=== PATIENT | male | born 2000 | race Caucasian/White ===

== ENCOUNTER 2021-08-11 07:05 | Outpatient (REF) | payer OTHER, MEDICAID, SELFPAY ==
[2021-08-11 10:35] LABS: MANUAL DIFF FLAG NO
[2021-08-11 10:43] LABS: Basophils Percent Auto 0.3 % (0-2); Eosinophils Absolute Auto 0.1 X10*3/uL (0.0-0.4); Eosinophils Percent Auto 1.3 % (0-4); Hematocrit 42.6 % (42.0-52.0); Hemoglobin 14.2 g/dl (14.0-18.0); Imm Gran Abs Auto 0.01 X10*3/uL (0.00-0.03); Imm Gran Pct Auto 0.3 % (0.0-0.4); Lymphocytes Absolute Auto 1.5 X10*3/uL (1.2-4.9); Lymphocytes Percent Auto 37.9 % (20-40); Mean Corpuscular HGB Conc 33.3 g/dl (31.0-36.0); Mean Corpuscular Hemoglobin 29.3 pg (27.0-33.0); Mean Platelet Volume 10.1 fL (9.4-12.4); Monocytes Absolute Auto 0.3 X10*3/uL (0.1-1.2); Neutrophils Absolute Auto 2.1 x10*3/uL (2.0-8.3); Neutrophils Percent Auto 53.2 % (45-73); Platelet Count 213 X10*3/uL (160-400); Red Blood Count 4.84 X10*6/uL (4.60-5.80); Red Cell Distribution Width 11.7 % (11.0-16.0)
[2021-08-11 11:21] LABS: Alanine Aminotransferase 30 U/L (0-40); Albumin Level 4.4 g/dL (3.5-5.0); Alkaline Phosphatase 81 U/L (39-117); Anion Gap 11 (12-20); Aspartate Amino Transferase 18 U/L (5-37); Bilirubin Total 0.8 mg/dL (0.0-1.0); Blood Urea Nitrogen 15 mg/dL (9-16); Calcium 9.9 mg/dL (8.4-10.2); Carbon Dioxide 29 mmol/L (22-29); Chloride 107 mmol/L (96-108); Cholesterol 158 mg/dL; Estimated Glomerular Filt Rate > 60; Glucose Fasting 87 mg/dL (60-99); HDL Cholesterol 44 mg/dL; LDL Cholesterol Calculated 100 mg/dl; Potassium 4.4 mmol/L (3.3-5.1); Sodium 143 mmol/L (135-145); Triglycerides 70 mg/dL
[2021-08-11 11:49] LABS: HBS Num1 0.95 mIU/mL (0-7.99); HBc Num1 0.06 S/CO (0.00-0.79); HIV AB/AG Nonreactive (Nonreactive); HIV Num 1 0.19 S/CO (0.00-0.99); Hepatitis B Core Antibody Nonreactive (Nonreactive); Hepatitis B Surface Antigen Negative (Negative); ~HepC Num1 0.09 S/CO (0.00-0.79); ~Hepatitis B Surface Antibody NONREACTIVE (Nonreactive); ~Hepatitis C Antibody Nonreactive (Nonreactive)
[2021-08-12 08:22] LABS: Syphilis Screen Nonreactive (Nonreactive)
== END 2021-08-11 07:06 | disposition home or self-care (01) ==
LOC: HO.WFDLDS 07:05
PROVIDERS: Visit Provider Family Medicine
DX: Z00.00 Encounter for general adult medical examination without abnormal findings (principal); Z11.4 Encounter for screening for human immunodeficiency virus [HIV]; Z11.3 Encounter for screening for infections with a predominantly sexual mode of transmission
CPT/HCPCS: 36415; 80053; 80061; 84443; 85025; 86704; 86706; 86780; 86803; 87340; 87389

== ENCOUNTER 2022-10-16 | Outpatient (REF) | payer BC, MEDICAID, SELFPAY ==
[2022-10-17 11:58] LABS: Appearance Urine Clear; Color Urine Yellow; Glucose Urine UA Negative (Negative); Leukocyte Esterase Urine Negative (Negative); Nitrite Urine Negative (Negative); PH 5.5 (5.0-9.0); UMIC TRIGGER UA YES; Urine Blood Negative (Negative); Urine Ketones Negative (Negative); Urine Protein 30 (1+) mg/dL (Neg-Trace)
[2022-10-17 12:00] LABS: Bacteria Urine None Seen (None Seen); Hyaline Casts Urine 0-2 /LPF (0-2); RBC Urine 0-2 /HPF (0-2); Squamous Epithelial Cell Urine 0-2 /HPF (0-2); WBC Urine 0-5 /HPF (0-5)
[2022-10-17 12:25] LABS: Amphetamine Screen Urine POSITIVE (Not Detect); Barbiturates, Urine Not Detected (Not Detect); Benzodiazepines Screen Urine Not Detected (Not Detect); Cannabinoid Screen Urine Not Detected (Not Detect); Cocaine Screen Urine Not Detected (Not Detect); Fentanyl, urine Not Detected (Not Detect); Opiate Screen Urine Not Detected (Not Detect); Phencyclidine Screen Urine Not Detected (Not Detect)
[2022-10-17 13:22] LABS: Creatinine Urine 58.98 mg/dL
== END 2022-10-16 00:01 | disposition home or self-care (01) ==
LOC: HO.LNP
PROVIDERS: Visit Provider Family Medicine
DX: F90.9 Attention-deficit hyperactivity disorder, unspecified type (principal); I10 Essential (primary) hypertension
CPT/HCPCS: 80307; 81001; 82043

== ENCOUNTER 2024-07-17 15:42 | Outpatient (AMB) | payer BC, MEDICAID, SELFPAY ==
--- NOTE | 2024-07-17 15:52 | MHC.PC.OV ---
Vital Signs 07/17/24 15:56 Height 5 ft 11 in Weight 148 lb 4 oz BMI 20.7 BP 90/60 Blood Pressure Location Lt brachial Position Sitting Respiration 16 Pulse 89 Pulse Source Pulse Oximeter Temp 98.2 F Temp Source Oral Pulse Oximetry (%) 97 Oxygen Delivery Method Room Air Intake Visit Reasons: PE Intake Note: PE Allergies No Known Allergies Allergy (Verified 07/17/24 15:53) Tobacco use date assessed: 07/17/24 Dental Screening Dental Screen Date: 07/17/24 Did you have a dental visit in the last 12 months?: Yes Did you have a dental problem in the last 6 months where you did not have access to dental care?: No Was dental information given to patient?: Patient has dentist HPI PE HPI Details 24 y/o male presents for a CPE with f/u labs and health maintenance. No recent labs to review. PFSH Surgical History No pertinent past surgical history Family History Father High blood pressure High cholesterol Mother No problems noted. Social History Housing: House Alcohol intake: never Patient Tobacco Use Status: Never used Tobacco e-Cigarette/Vaping Use: Never Used Second Hand Smoke Exposure: Yes service: No Current occupational status: student Current occupational exposures/hazards: No Cognitive needs: No Hearing needs: No Vision needs: No Questionnaire PHQ-9 Over the last 2 weeks, how often have you been bothered by any of the following problems? 1. Little interest or pleasure in doing things: more than half the days 2. Feeling down, depressed, or hopeless: not at all 3. Trouble falling or staying asleep, or sleeping too much: more than half the days 4. Feeling tired or having little energy: not at all 5. Poor appetite or overeating: not at all 6. Feeling bad about yourself - or that you are a failure or have let yourself or your family down: not at all 7. Trouble concentrating on things, such as reading the newspaper or watching television: more than half the days 8. Moving or speaking so slowly that other people could have noticed. Or the opposite - being so fidgety or restless that you have been moving around a lot more than usual: not at all 9. Thoughts that you would be better off or of hurting yourself in some way: not at all Total score: 6 Source: Developed by Drs. Eliezer Benavides, Fatuma Ballard, Jose Luis Olea and colleagues, with an educational paul from [employer]. Thrive Questionnaire Date Thrive assessed: 07/17/24 I am a: Patient What is your living situation today?: I have a steady place to live Within the past 12 months, did the food you bought not last and you didn't have the money to get more?: Never true Within the past 12 months, did you worry whether your food would run out before you got money to buy more?: Sometimes True Do you have trouble paying for medicines?: No Do you have trouble getting transportation to medical appointments?: Yes Do you have trouble paying your heating and electricity bill?: No Do you have trouble taking care of your child, family member or friend?: No Do you have trouble with day-to-day activities such as bathing, preparing meals, shopping, managing finances, etc.?: I choose not to answer this question Are you currently unemployed and looking for a job?: Yes Are you interested in more education?: Yes Please select the resources that you would like help with: None Currently or been in a relationship where the following occur: No concerns reported THRIVE Score: 2 AUDIT C Alcohol Use Questionnaire (AUDIT-C) 1. How often do you have a drink containing alcohol?: Never Total Score: 0 TRINA-7 AMB Questionnaire TRINA-7 Date TRINA - 7 assessed: 07/17/24 Feeling nervous, anxious, or on edge: 2 = More than half the days Not being able to stop or control worryin = More than half the days Worrying too much about different things: 0 = Not at all Trouble relaxin = Several days Being so restless that it is hard to sit still: 0 = Not at all Becoming easily annoyed or irritable: 2 = More than half the days Feeling afraid as if something awful might happen: 0 = Not at all Total TRINA-7 score (0-4 normal; 5-9 mild; 10-14 moderate; 15-21 severe): 7 Source: Developed by Drs. Eliezer Benavides, Fatuma Ballard, Jose Luis Olea and colleagues, with an educational paul from [employer] TRINA-7 Assessment Billing TRINA-7 Assessment Tool: TRINA-7 Assessment 21817 Review of Systems Const Denies chills, Denies fatigue, Denies fever(s), Denies headache(s) and Denies weakness Eyes Denies change in vision ENT Denies dizziness, Denies headache(s), Denies hearing loss, Denies nasal congestion, Denies sinus pain, Denies sinus pressure and Denies sore throat Card Denies chest pain, Denies lightheadedness, Denies dyspnea and Denies other (palpitations) Resp Denies cough, Denies dyspnea and Denies wheezing GI Denies abdominal pain, Denies melena, Denies hematochezia, Denies change in bowel habits, Denies dyspepsia and Denies nausea Denies hematuria and Denies dysuria Musc Denies abnormal gait, Denies myalgias, Denies arthralgias, Denies numbness and Denies tingling Skin/Breast Denies rash, Denies unusual bruising and Denies wounds Neuro Denies abnormal gait, Denies dizziness, Denies headache(s), Denies memory loss, Denies numbness, Denies Sensory deficit (Neuro), Denies tingling and Denies weakness Psych Denies anxiety, Denies depression and Denies memory loss Endo Denies cold intolerance, Denies fatigue, Denies heat intolerance, Denies polydipsia and Denies polyuria Marcial/Lymph Denies easy bleeding and Denies easy bruising Aller/Immun Denies wheezing Physical exam (Primary Care) Tobacco/Smoking Status: Tobacco use Status Tobacco use date assessed 07/17/24 07/17/24 15:58 Patient Tobacco Use Status Never used Tobacco 07/17/24 15:58 e-Cigarette/Vaping Use Never Used 07/17/24 15:58 PHQ-9: PHQ-9 Score PHQ-9: Total score 6 07/17/24 15:58 Thrive Assessment: Date of Thrive Assessment Date Thrive assessed 07/17/24 07/17/24 15:58 Currently or been in a relationship where the following occur: No concerns reported Const General: no acute distress, well developed, alert and awake Nutritional Appearance: well nourished Orientation/consciousness: patient oriented x3 [facility] Head: Yes normocephalic and Yes atraumatic Ears: hearing grossly normal bilaterally and TM's normal bilaterally General nose exam: Normal external nose present and Normal nares present Mouth: Normal oral and palatal mucosa present and moist mucous membranes Teeth and gingiva: dentition normal Throat: Yes posterior oropharynx normal Eyes General: appearance normal, both eyes and all related structures Pupils: Equal, round and reactive pupils present and Pupil accommodation reflex normal EOM: EOMs intact bilaterally Neck Neck: Yes normal visual inspection, Yes no lymphadenopathy and Yes trachea midline Thyroid: Thyroid normal Carotids: no bruits Lymphatic: no lymphadenopathy noted Chest Chest palpation & inspection: normal inspection of the chest Resp Effort & Inspection: normal respiratory effort Auscultation: clear to auscultation bilaterally Cardio Rate: regular rate Rhythm: regular rhythm Heart sounds: S1 normal heart sound present, S2 normal heart sound present, no gallops, no murmurs and no rubs Bruits: no abdominal aortic bruits and no carotid bruits GI Palpation (GI): No Abdominal aortic bruit present, Soft to palpation, nontender, No hepatosplenomegaly present and No Rebound tenderness present Auscultation: normal bowel sounds General: Yes no CVA tenderness Back/Spine/Pelvis Back: no CVA tenderness Cervical Spine: cervical ROM normal and No Cervical spine tenderness Thoracic/Lumbar Spine: thoraco-lumbar ROM normal, No pain with thoraco-lumbar ROM, No thoracic spinal tenderness and No lumbar spinal tenderness Skin Lesions: no lesions Rashes: no rashes Trauma: no lacerations or abrasions Wounds: no wounds Nails: normal Neuro General: patient oriented x3 Cranial nerves: Yes Equal, round and reactive pupils present Cognition (Neuro): normal cognition Gait exam (Neuro): Normal gait present Motor exam (neuro): 5/5 motor strength present throughout Sensory Exam: No Sensory deficit (Neuro) Deep tendon reflexes (DTR's): Right patellar reflex intensity grade: 2+ and Left patellar reflex intensity grade: 2+ Extrem General: Yes normal to inspection and No edema Psych Appearance: grossly normal Affect: normal affect Attitude: cooperative Thought process: Normal thought process present Coding Level of Care Code Est Pt Level 3 (84631) Est Pt Prev Care 18-39y(42645) Diagnoses Adult general medical exam Z00.00 Autism F84.0 ADHD (attention deficit hyperactivity disorder) F90.9 Anxiety with depression F41.8 Additional Codes TRINA-7 Assessment Billing - TRINA-7 Assessment Tool: TRINA-7 Assessment 49184 ([id number]) Assessment & Plan Assessment & Plan (1) Adult general medical exam: Code(s): Z00.00 - Encounter for general adult medical examination without abnormal findings Category: Medical Plan: 24-year-old?male?presents?for?complete?physical?exam Encouraged?diet?with?active?lifestyle?and?plenty?of?exercise (2) Autism: Code(s): F84.0 - Autistic disorder Category: Medical Plan: Peculiar?affect?likely?secondary?to?autism?ADHD?as?well?as?anxiety?and?depression. Patient?has?mom?requests?referral?to?neuropsychiatry Referral?is?made (3) ADHD (attention deficit hyperactivity disorder): Code(s): F90.9 - Attention-deficit hyperactivity disorder, unspecified type Category: Medical Plan: Patient?is?now?followed?by?a?provider?and?is?methylphenidate Follow-up?with?your?psych?med?provider?as?recommended (4) Anxiety with depression: Code(s): F41.8 - Other specified anxiety disorders Category: Medical Plan: Stable Continue?current?medications Now?has?referral to?neuropsychiatry Orders: Orders Comprehensive [place]. Panel Fast Today Z00.00 - Encounter for general adult medical examination without abnormal findings Lipid Panel Today Z00.00 - Encounter for general adult medical examination without abnormal findings Microalbumin, Random (w Creat) Today I10 - Essential (primary) hypertension UA and rflx microscopic Today Z00.00 - Encounter for general adult medical examination without abnormal findings TSH reflex Free T4 Today Z00.00 - Encounter for general adult medical examination without abnormal findings Referrals Neuropsychiatry Referral F41.8 - Other specified anxiety disorders, F84.0 - Autistic disorder, F90.9 - Attention-deficit hyperactivity disorder, unspecified type Medications: Discontinued dextroamphetamine-amphetamine 15 mg ER (Adderall XR) [facility] verified. Partial refill upon request. Discontinued Reason: Patient no longer taking 15 mg PO QAM 28 days 28 caps 0RF
[2024-07-17 15:56] VITALS: BP 90/60; PULSE 89; RESP 16; TEMP 36.8; O2SAT 97; BMI 20.7
== END 2024-07-17 16:10 | disposition home or self-care (01) ==
PROVIDERS: PCP Family Medicine; Visit Provider Family Medicine
DX: Z00.00 Encounter for general adult medical examination without abnormal findings (principal); F84.0 Autistic disorder; F90.9 Attention-deficit hyperactivity disorder, unspecified type; F41.8 Other specified anxiety disorders

== ENCOUNTER → 2024-07-17 15:42 | Outpatient (BNVA) | payer BC, MEDICAID, SELFPAY | PROVIDERS: PCP Family Medicine; Visit Provider Family Medicine | DX: Z00.00 Encounter for general adult medical examination without abnormal findings (principal); F84.0 Autistic disorder; F90.9 Attention-deficit hyperactivity disorder, unspecified type; F41.8 Other specified anxiety disorders | CPT/HCPCS: 96127 ==

== ENCOUNTER 2024-08-05 11:36 | Outpatient (REF) | payer BC, MEDICAID, SELFPAY ==
[2024-08-05 14:05] LABS: Appearance Urine Clear; Color Urine Yellow; Glucose Urine UA Negative (Negative); Leukocyte Esterase Urine Negative (Negative); Nitrite Urine Negative (Negative); UMIC TRIGGER UA YES; Urine Blood Negative (Negative); Urine Ketones Negative (Negative); Urine Protein 30 (1+) mg/dL (Neg-Trace)
[2024-08-05 14:07] LABS: Bacteria Urine None Seen (None Seen); Hyaline Casts Urine 0-2 /LPF (0-2); RBC Urine 0-2 /HPF (0-2); Squamous Epithelial Cell Urine 0-2 /HPF (0-2); WBC Urine 0-5 /HPF (0-5)
[2024-08-05 14:37] LABS: Creatinine Urine 247.51 mg/dL
[2024-08-05 14:53] LABS: Alanine Aminotransferase 42 U/L (0-40); Albumin Level 4.4 g/dL (3.5-5.0); Alkaline Phosphatase 63 U/L (39-117); Anion Gap 9 (12-20); Aspartate Amino Transferase 26 U/L (5-37); Bilirubin Total 0.7 mg/dL (0.0-1.0); Blood Urea Nitrogen 12 mg/dL (9-16); Calcium 8.9 mg/dL (8.4-10.2); Carbon Dioxide 29 mmol/L (22-29); Chloride 108 mmol/L (96-108); Cholesterol 136 mg/dL (<200); Estimated Glomerular Filt Rate > 60; Glucose Fasting 80 mg/dL (60-99); HDL Cholesterol 54 mg/dL (>40); LDL Cholesterol Calculated 72 mg/dL (<100); Potassium 3.5 mmol/L (3.3-5.1); Sodium 142 mmol/L (135-145); Total Protein 6.4 g/dL (6.5-8.0); Triglycerides 54 mg/dL (<150)
[2024-08-05 14:55] LABS: TSH reflex Free T4 0.52 uIU/mL (0.32-4.0)
== END 2024-08-05 11:37 | disposition home or self-care (01) ==
LOC: HO.WFDLDS 11:36
PROVIDERS: Visit Provider Family Medicine
DX: Z00.00 Encounter for general adult medical examination without abnormal findings (principal); I10 Essential (primary) hypertension
CPT/HCPCS: 36415; 80053; 80061; 81001; 81003; 82043; 82570; 84443

== ENCOUNTER 2024-08-22 14:12 | Outpatient (AMB) | payer OTHER, SELFPAY ==
--- NOTE | 2024-08-22 14:08 | MHC.PC.OV ---
Intake Visit Reasons: f/u CPE-labs via telemedicine Allergies No Known Allergies Allergy (Verified 07/17/24 15:53) Medication List - Last Reconciled 08/22/24 by Nathan Leija MD albuterol sulfate 90 mcg/actuation 2 puffs inhalation Q4-6H 30 days bupropion HCl XL 150 mg PO QAM 90 days fexofenadine (Anika Allergy) 180 mg PO Q24H 30 days fluticasone propionate 50 mcg/actuation sprays intranasal trazodone 36 mg PO DAILY Tobacco use date assessed: 07/17/24 Dental Screening Dental Screen Date: 07/17/24 HPI f/u CPE-labs via telemedicine HPI Details 24 y/o male presents to f/u CPE-labs via telemedicine. Labs drawn 08/05/24. Reviewed labs with pt. Elevated ALT of 42. Triglycerides 54. TC 136. LDL 72. HDL 54. PFSH Surgical History No pertinent past surgical history Family History Father High blood pressure High cholesterol Mother No problems noted. Social History Housing: House Alcohol intake: never Patient Tobacco Use Status: Never used Tobacco e-Cigarette/Vaping Use: Never Used Second Hand Smoke Exposure: Yes service: No Current occupational status: student Current occupational exposures/hazards: No Cognitive needs: No Hearing needs: No Vision needs: No Questionnaire Thrive Questionnaire Date Thrive assessed: 07/17/24 I am a: Patient What is your living situation today?: I have a steady place to live Within the past 12 months, did the food you bought not last and you didn't have the money to get more?: Never true Within the past 12 months, did you worry whether your food would run out before you got money to buy more?: Sometimes True Do you have trouble paying for medicines?: No Do you have trouble getting transportation to medical appointments?: Yes Do you have trouble paying your heating and electricity bill?: No Do you have trouble taking care of your child, family member or friend?: No Do you have trouble with day-to-day activities such as bathing, preparing meals, shopping, managing finances, etc.?: I choose not to answer this question Are you currently unemployed and looking for a job?: Yes Are you interested in more education?: Yes Please select the resources that you would like help with: None Currently or been in a relationship where the following occur: No concerns reported THRIVE Score: 2 AUDIT C Alcohol Use Questionnaire (AUDIT-C) 3. How often do you have six or more drinks on one occasion?: Never Total Score: 0 TRINA-7 AMB Questionnaire TRINA-7 Date TRINA - 7 assessed: 07/17/24 Source: Developed by Drs. Eliezer Benavides, Fatuma Ballard, Jose Luis Olea and colleagues, with an educational paul from [employer]. Review of Systems Const Denies chills, Denies fatigue, Denies fever(s), Denies headache(s) and Denies weakness ENT Denies dizziness and Denies headache(s) Card Denies dyspnea Resp Denies cough, Denies dyspnea, Denies wheezing and Denies other (shortness of breath) Musc Denies numbness and Denies tingling Neuro Denies dizziness, Denies headache(s), Denies numbness, Denies tingling and Denies weakness Psych Denies anxiety and Denies depression Endo Denies fatigue Aller/Immun Denies wheezing Physical exam (Primary Care) Tobacco/Smoking Status: Tobacco use Status Tobacco use date assessed 07/17/24 08/22/24 14:09 Patient Tobacco Use Status Never used Tobacco 08/22/24 14:09 e-Cigarette/Vaping Use Never Used 08/22/24 14:09 Thrive Assessment: Date of Thrive Assessment Date Thrive assessed 07/17/24 08/22/24 14:09 Currently or been in a relationship where the following occur: No concerns reported Telehealth Telehealth Telehealth Platform: Telephone Location of provider rendering services: practice address Location of patient: address on file Patient Identification confirmed using: Name, : Yes Telehealth method: voice only Patient verbally consented to treatment: Yes Patient verbally consented to billing insurance company: Yes Patient informed of any privacy concerns related to visit: Yes Minutes spent on Phone/Video with Pt.: 8 Coding Level of Care Code Tele Est Pt Level 2 (28146) Diagnoses Elevated ALT measurement R74.01 Assessment & Plan Assessment & Plan (1) Elevated ALT measurement: Code(s): R74.01 - Elevation of levels of liver transaminase levels Category: Medical Plan: Mildly?elevated?ALT Will?have?patient?hydrate?well?and?repeat?this Orders: Orders Comprehensive Met. Panel Today R74.01 - Elevation of levels of liver transaminase levels
--- OUTSIDE RECORDS SUMMARY | 2024-08-22 14:14 | XMS_ITS | Encounter Summary ---
Author Organization [facility] Address [address] [place] [address] Phone Care Team Providers Care Environmental Projects Advisor Name Role Phone Randall Rizvi MD Primary Care Provider + [phone] Reason for Visit * Reason Comments Med Refill Encounter Details Date Type Department Care Team (Late st Contact Info) Description 09/21/2022 [facility]ill [facility] [address] [address] Greta Sanders MD [address] [place] [id number] Environmental allergies Social History Tobacco Use Types Packs/Day Years Used Date Smoking Tobacco: Never Smokeless Tobacco: Never Alcohol Use Standard Drinks/Week Comments No 0 (1 standard drink = 0.6 oz pur e alcohol) Hunger/Food Answer Date Recorded In the last 12 months, did y ou or your family ever eat less than you felt you should because there wasn't enough money for food? No 10/28/2020 Stable Housing Answer Date Recorded Are you worried that in the next 2 months you may not have stable housing? No 10/28/2020 Transportation Concerns Answer Date Rec orded In the last 12 months, have you or your family ever had to go without healthcare because you didn't have a way to get there? No 10/28/2020 Hazards in Home Answer Date Recorded Think about the place you li ve. Do you have problems with any of the following? Pests (mice or roaches), mold, no/not working smoke detectors, water leaks, no window guards. No 2020 Financing Utilities Answer Date Recorde d In the last 12 months, has t he electric, gas, oil, or water company threatened to shut off your services in your home? No 10/28/2020 Safety at Home Answer Date Recorded Are you or your family worried about feeling saf e in your home? No 10/28/2020 Outside Support Answer Date Recorded Do you feel that you need mo re support from other people or programs to help you care for yourself or your family? Yes 10/28/2020 Understanding Health Concerns Answer Da te Recorded Do you need help understandi ng your or your child's healthcare needs (diagnosis, medications, plan, etc.)? No 10/28/2020 Financing Health Concerns Answer Date R ecorded In the last 12 months, was t here a time when your child needed to see a doctor or get medications or supplies but could not because of cost? No 10/28/2020 Missing School or Work Answer Date Otf rded Did you or your child miss s chool or work because of a health problem that could have been avoided? No 10/28/2020 Sex and Gender Information Value Date Recorded Sex Assigned at Not on file Legal Sex Male 6:20 PM EDT Gender Identity Male 09/23/2020 3:46 PM EST Sexual Orientation Not on file documented as of this encounter Miscellaneous Notes * Telephone Encounter - Saud Worrell CMA - 09/21/2022 11:35 AM EST Please refuse Pt is inactive Aged out of practice . Thanks documented in this encounter Plan of Treatment Not on file documented as of this encounter Visit Diagnoses Diagnosis Environmental allergies Other allergy, other than to medicinal agents documented in this encounter Care Teams Environmental Projects Advisor Relationship Specialty Start Date End Date Randall Rizvi MD 7 [facility] [place] [address] PCP - General Pediatrics 07/06/19 documented as of this encounter
--- OUTSIDE RECORDS SUMMARY | 2024-08-22 14:14 | XMS_ITS | Encounter Summary ---
Author Organization [facility] Address [address] [place] [address] Phone Care Team Providers Care Systems Mechanic Name Role Phone Randall Rizvi MD Primary Care Provider [phone] Encounter Details Date Type Department Care Team (Late st Contact Info) Description 12/09/2017 Conversion [facility]counter [facility] [id number] [place] [address] Airam Engel MD [address] [place] [address] Social History Tobacco Use Types Packs/Day Years Used Date Smoking Tobacco: Never Assessed Sex and Gender Information Value Date Recorded Sex Assigned at Not on file Legal Sex Male 6:20 PM EDT Gender Identity Male 09/23/2020 3:46 PM EST Sexual Orientation Not on file documented as of this encounter Plan of Treatment Not on file documented as of this encounter Visit Diagnoses Not on filedocumented in this encounter Care Teams Systems Mechanic Relationship Specialty Start Date End Date Randall Rizvi MD [address] [place] [address] PCP - General Pediatrics 07/06/19 documented as of this encounter
--- OUTSIDE RECORDS SUMMARY | 2024-08-22 14:14 | XMS_ITS | Encounter Summary ---
Author Organization [facility] Address [address] [place] [address] Phone Care Team Providers Care Weaving Inspector Name Role Phone Randall Rizvi MD Primary Care Provider + [phone] Reason for Visit * Reason Comments Med Refill Encounter Details Date Type Department Care Team (Late st Contact Info) Description 06/08/2022 [facility]ill [facility] [address] [address] Greta Sanders MD [address] [place] [phone] Environmental allergies Social History Tobacco Use Types [...] Telephone Encounter - Saud Worrell CMA - 06/08/2022 10:33 AM EST Pt is 22 yrs old Aged out of practice Inactive Please refuse documented in this encounter Plan of Treatment Not on file documented as of this encounter Visit Diagnoses Diagnosis Environmental allergies Other allergy, other than to medicinal agents documented in this encounter Care Teams Weaving Inspector Relationship Specialty Start Date End Date Randall Rizvi MD 7 [facility] [place] [address] PCP - General Pediatrics 07/06/19 documented as of this encounter
--- OUTSIDE RECORDS SUMMARY | 2024-08-22 14:14 | XMS_ITS | Encounter Summary ---
Author Organization [facility] Address [address] [place] [address] Phone Care Team Providers Care Lining Machine Tender Name Role Phone Randall Rizvi MD Primary Care Provider + [phone] Reason for Visit * Reason Comments Med Refill Encounter Details Date Type Department Care Team (Late st Contact Info) Description 11/16/2021 [facility]ill [facility] [address] [address] Randall Rizvi MD [address] [place] [phone] Environmental allergies Social History Tobacco Use Types [...] agents documented in this encounter Care Teams Lining Machine Tender Relationship Specialty Start Date End Date Randall Rizvi MD 7 [facility] [place] [address] PCP - General Pediatrics 07/06/19 documented as of this encounter
--- OUTSIDE RECORDS SUMMARY | 2024-08-22 14:14 | XMS_ITS | Encounter Summary ---
Author Organization [facility] Address [address] [place] [address] Phone Care Team Providers Care Flitch Hanger Name Role Phone Randall Rizvi MD Primary Care Provider [phone] Reason for Visit * Reason Comments Med Refill Encounter Details Date Type Department Care Team (Late st Contact Info) Description 01/19/2018 [facility]ill [facility] [address] [address] Airam Engel MD [address] [place] [address] Social History Tobacco Use Types Packs/Day Years Used Date Smoking Tobacco: Never Assessed Sex and Gender Information Value Date Recorded Sex Assigned at Not on file Legal Sex Male 6:20 PM EDT Gender Identity Male 09/23/2020 3:46 PM EST Sexual Orientation Not on file documented as of this encounter Miscellaneous Notes * Telephone Encounter - Mallory Obrien - 01/19/2018 1:37 PM EDT Pt no showed to appts, need to sched. documented in this encounter Plan of Treatment Not on file documented as of this encounter Visit Diagnoses Not on filedocumented in this encounter Care Teams Flitch Hanger Relationship Specialty Start Date End Date Randall Rizvi MD [address] [place] [address] PCP - General Pediatrics 07/06/19 documented as of this encounter
--- OUTSIDE RECORDS SUMMARY | 2024-08-22 14:14 | XMS_ITS | Clinical Summary ---
Author Organization [facility] Address [address] [place] [phone] Phone Care Team Providers Care Steam Distribution Supervisor Name Role Phone Randall Rizvi MD Primary Care Provider Allergies No known active allergies Medications guanFACINE HCl ER 1 MG tablet sustained-release 24 hourIndications:A ttention deficit hyperactivity disorder (ADHD), predominantly inattentive type To give 2 tables for one week and then 1 tablet per week and then stop. 21 tablet 9 Active Additional Information Patient not taking.Reported on 03/10/2021 chlorhexidine 0.12 % solution SWISH WITH 1 CAPFUL FOR 2 MINUTES THEN SPIT 3 TIMES A DAY (AFTER MEALS) 1 Active clindamycin 300 MG capsule TAKE 1 CAPSULE BY MOUTH EVERY 6 HOURS UNTIL FINISHED 1 Active guanFACINE HCl ER 3 MG tablet sustained-release 24 hour 0 Active ibuprofen 800 MG tablet Take 800 mg by mouth every 8 (eight) hours as needed. for pain 1 Active methylPREDNISolon e 4 MG tablet therapy pack See admin instructions. 1 Active oxyCODONE-acetami nophen 5-325 MG per tablet Take 1 tablet by mouth every 4 (four) hours as needed. for pain 1 Active fluticasone (Flonase) 50 MCG/ACT nasal sprayIndications: Environmental allergies Administer 1 spray into each nostril daily. 1 Units 5 1 Active albuterol HFA 108 (90 Base) MCG/ACT inhalerIndication s:Environmental allergies INHALE 2 PUFFS EVERY 4 HOURS NEEDED (COUGH). 1 Units 1 Active methylphenidate (Concerta) 36 MG CR tabletIndications :Attention deficit hyperactivity disorder (ADHD), predominantly inattentive type Take 1 tablet (36 mg total) by mouth every morning. 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 07/10 Assessment & Plan (08/13/2019 11:49 AM EST): Plans to see oral surgeon on in a few weeks. Mild intermittent asthma without complication Hypopigmentation 04/27/2015 Assessment & Plan (05/28/2018 2:44 PM EST): To derm for check; as dad has vitigo Wears glasses 02/20/2013 Autism 09/21/2003 Overview (05/27/2018): Dr Robert, MRI neg, Chroms and Fragile X normal, initially on gluten and casein free diet. Educ. testing shows strengths in nonverbal and spatial activities and weakness in verbal skills 11/28 Assessment & Plan (07/08/2019 11:02 AM EST): Continue to work with speech and services. Assessment & Plan (05/28/2018 2:44 PM EST): Cont services at school Speech delay 05/23/2003 Overview (07/07/2020): receptive speech delay, normal hearing 04/29; IEP for speech, pragmatics, academic support 01/04, [employer] program 04/08 graphic Design; seen by speech again 06/2020 Assessment & Plan (05/28/2018 2:44 PM EST): Cont services. ADD (attention deficit disorder) Overview (05/27/2018): inattentiveness 08/31 educational testing with strengths in nonverbal and spatial abilities and weakness in verbal skills 11/28 ADHD - stimulant tx 12/29 - Neuropsych testing by Dr Raul lora 08/2009 - intolerance of stimulants, MCPAP consult, Jessica Maki prescribes 01/01, back to [facility] for prescribing 02/01 Assessment & Plan (10/28/2020 3:26 PM EDT): Doing well on concerta 36 mg; no change in dose at this time. Assessment & Plan (09/23/2020 4:19 PM EST): Will increase to 36 mg per day of Concerta in attempt to improve his concentration. Has WCC in one month, so will plan to see him at that time. Family can call sooner if needed. Assessment & Plan (08/13/2019 12:14 PM EST): Plan to continue his dosing at 27 mg of Concerta as he is doing well on this dose; plan for recheck in 6 mos; sooner as needed. Assessment & Plan (07/08/2019 11:00 AM EST): Will plan to change to Concerta 27 mg to see if that helps with his sedation issues; the guanfacine may be making him more tired. Will wean the guanfacine by 1mg per week until d/c'd Assessment & Plan (05/28/2018 2:41 PM EST): Still on guanfacine. Can try off meds on weekends and see how does and if no difference the come off meds or change to something else. Resolved Problems Problem Noted Date Diagnosed Date Resolved Date Influenza vaccine refused 07/08/2019 Assessment & Plan (07/08/2019 10:21 AM EST): Discussed reasons for influenza vaccination to include prevention of this potential serious infection. BMI (body mass index), pedia tric, less than 5th percentile for age 0601/14/2016 07/08/2019 Immunizations Name Administration Dates Next Due COVID-19 Pfizer, monovalent, 12+ years 1 DTaP 05/25/2005, 2,2000,08/17,2000 HPV Vaccine 9 Valent 12/03/2018,07/30/2018,05/28 Hep A, ped/adol 05/28/2018,02/02/2017 Hep B, ped/adol 01/10/2001,2000,2000 Hib (PRP-T) 07/26/2001, 1,2000,06/29 IPV 05/25/2005, 1,2000,06/29 Influenza 05/03/2004,05/07/2003 Influenza, injectable, quadr ivalent, preservative free 07/08/2019,05/28/2018,04/23/2008 MMR 05/03/2004,04/23/2001 Meningococcal Conj (Menactra) MCV4P 02/02/2017,0 01/12/2012 Pneumococcal Conjugate 07/26/2001,2000,2000,06/29 Tdap 01/12/2012 Varicella 06/28/2007,04/23/2001 Family History Medical History Relation Name Comments No Known Problems Brother Hyperlipidemia Father Hypertension Father Thyroid disease Father Pancreatic cancer Maternal Grandfather Irregular heart beat Maternal Grandmother Pancreatic cancer Maternal Grandmother Thyroid disease Maternal Grandmother Irregular heart beat Mother Indigo Heart disease (Premature) Paternal Grandfather Hyperlipidemia Paternal Grandfather Lymphoma Paternal Grandfather Thyroid disease Paternal Grandmother Relation Name Status Comments Brother Alive Father Alive Maternal Grandfather Alive Maternal Grandmother Mother Indigo Alive Paternal Grandfather Paternal Grandmother Alive Social History Tobacco Use Types Packs/Day Years [...] PM EST Sexual Orientation Not on file Last Filed Vital Signs Vital Sign Reading Time Taken Comments Blood Pressure 112/70 10/28/2020 3:00 PM EDT Pulse 104 07/29/2016 12:00 AM EST Temperature 36.7 ??C (98.1 ??F) 03/10/2021 10:16 AM E DT Respiratory Rate - - Oxygen Saturation 100% 07/29/2016 12:00 AM EST Inhaled Oxygen Concentration - - Weight 63.5 kg (140 lb) 03/10/2021 10:16 AM EDT Height 179.1 cm (5' 10.5 ) 10/28/2020 3:00 PM ED T Body Mass Index 19.8 10/28/2020 3:00 PM EDT Plan of Treatment Health Maintenance Due Date Last Done Comments DTaP,Tdap,and Td Vaccines (7 - Td or Tdap) 01/11/2022 01/12/2012, 05/25/2005, 07/26/2001, Additional history exists Influenza Vaccines (#1) 2024 07/08/20 19, 05/28/2018, 04/23/2008, Additional history exists COVID-19 Vaccine ( season) 2024 08/19/2021, 02/04/2021, 01/13/2021 Hepatitis B Vaccines Completed 01/10/2001, 2000, 2000 HIB Vaccines Completed 07/26/2001, 11/2000, 2000, Additional history exists Pneumococcal Vaccine Completed 07/26/2001, 2000, 2000, Additional history exists MMR Vaccines Completed 05/03/2004, 04/23/2001 IPV Vaccines Completed 05/25/2005, 12/22, 2000, Additional history exists Varicella Vaccines Completed 06/28/2007, 04/23/2001 Meningococcal Vaccine Completed 02/02/2017, 012 Hepatitis A Vaccines Completed 05/28/2018, 02/03/20 17 HPV Vaccines Completed 12/03/2018, 02/2019, 05/28/2018 Men B Vaccine Aged Out No longer elig ible based on patient's age to complete this topic Insurance [facility] PCC [facility] NON PCC Care Teams Steam Distribution Supervisor Relationship Specialty Start Date End Date Randall Rizvi MD [address] [place] [id number] PCP - General Pediatrics 07/06/19
== END 2024-08-22 17:05 | disposition home or self-care (01) ==
LOC: HO.HMCFM 14:12
PROVIDERS: PCP Family Medicine; Visit Provider Family Medicine
DX: R74.01 Elevation of levels of liver transaminase levels (principal)

== ENCOUNTER 2024-10-14 10:47 | Outpatient (REF) | payer OTHER, SELFPAY ==
[2024-10-14 14:20] LABS: Appearance Urine Clear; Color Urine Yellow; Glucose Urine UA Negative (Negative); Leukocyte Esterase Urine Negative (Negative); Nitrite Urine Negative (Negative); PH 5.5 (5.0-9.0); Urine Blood Negative (Negative); Urine Ketones Negative (Negative); Urine Protein Negative (Neg-Trace)
[2024-10-14 14:45] LABS: Alanine Aminotransferase 35 U/L (0-40); Albumin Level 4.5 g/dL (3.5-5.0); Alkaline Phosphatase 70 U/L (39-117); Anion Gap 9 (12-20); Aspartate Amino Transferase 24 U/L (5-37); Bilirubin Total 0.6 mg/dL (0.0-1.0); Blood Urea Nitrogen 13 mg/dL (9-16); Calcium 9.3 mg/dL (8.4-10.2); Carbon Dioxide 29 mmol/L (22-29); Chloride 107 mmol/L (96-108); Estimated Glomerular Filt Rate > 60; Glucose Random 82 mg/dL (60-115); Sodium 141 mmol/L (135-145); Total Protein 6.7 g/dL (6.5-8.0)
== END 2024-10-14 10:48 | disposition home or self-care (01) ==
LOC: HO.WFDLDS 10:47
PROVIDERS: Visit Provider Family Medicine
DX: Z00.00 Encounter for general adult medical examination without abnormal findings (principal); R74.01 Elevation of levels of liver transaminase levels
CPT/HCPCS: 36415; 80053; 81003

== ENCOUNTER 2024-11-12 15:42 | Outpatient (AMB) | payer OTHER, SELFPAY ==
--- NOTE | 2024-11-12 15:29 | A.OFFPC_ITS ---
Intake Visit Reasons: f/u liver enzymes Intake Note: patient is scheduled to review labs [employer]ed [employer] Panels Deburrer Required: No Allergies No Known Allergies Allergy (Verified 11/12/24 15:29) Tobacco use date assessed: 07/17/24 Dental Screening Dental Screen Date: 07/17/24 HPI f/u liver enzymes HPI Details 24 y/o male presents to f/u labs via tel emedicine. Labs drawn 10/14/24. Reviewed labs with pt. AST 24. ALT improved from 42 to 35. PFSH Surgical History No pertinent past surgical history Family History Father High blood pressure High cholesterol Mother No problems noted. Social History Housing: House Alcohol intake: never Patient Tobacco Use Status: Never used Tobacco e-Cigarette/Vaping Use: Never Used Second Hand Smoke Exposure: Yes service: No Current occupational status: student Current occupational exposures/hazards: No Cognitive needs: No Hearing needs: No Vision needs: No Questionnaire Thrive Questionnaire Date Thrive assessed: 07/17/24 TRINA-7 AMB Questionnaire TRINA-7 Date TRINA - 7 assessed: 07/17/24 Source: Developed by Drs. Eliezer Benavides, Fatuma Ballard, Jose Luis Olea and colleagues, with an educational paul from [facility]. Review of Systems Const Denies chills, Denies fatigue, Denies fever(s), Denies headache(s) and Denies weakness ENT Denies dizziness and Denies headache(s) Card Denies dyspnea Resp Denies cough, Denies dyspnea, Denies wheezing and Denies other (shortness of breath) Musc Denies numbness and Denies tingling Neuro Denies dizziness, Denies headache(s), Denies numbness, Denies tingling and Denies weakness Psych Denies anxiety and Denies depression Endo Denies fatigue Aller/Immun Denies wheezing Physical exam (Primary Care) Tobacco/Smoking Status: Tobacco use Status Tobacco use date assessed 07/17/24 11/12/24 15:31 Patient Tobacco Use Status Never used Tobacco 11/12/24 15:31 e-Cigarette/Vaping Use Never Used 04/23/25 15:31 Thrive Assessment: Date of Thrive Assessment Date Thrive assessed 07/17/24 11/12/24 15:31 Telehealth Telehealth Telehealth Platform: Telephone Location of provider rendering services: practice address Location of patient: address on file Patient Identification confirmed using: Name, : Yes Telehealth method: voice only Patient verbally consented to treatment: Yes Patient verbally consented to billing insurance company: Yes Patient informed of any privacy concerns related to visit: Yes Minutes spent on Phone/Video with Pt.: 7 Coding Level of Care Code Tele Est Pt Level 2 (62019) Diagnoses Elevated ALT measurement R74.01 Assessment & Plan Assessment & Plan (1) Elevated ALT measurement: Code(s): R74.01 - Elevation of levels of liver transaminase levels Category: Medical Plan: Liver?enzymes?now?within?normal?range Continue?good?hydration Will?monitor?periodically?with?he?is?routine?annual?labs. Orders: Orders Comprehensive [place]. Panel Fast Today Z00.00 - Encounter for general adult medical examination without abnormal findings Lipid Panel Today Z00.00 - Encounter for general adult medical examination without abnormal findings TSH reflex Free T4 Today Z00.00 - Encounter for general adult medical exam ination without abnormal findings UA CC w/rflx Micro + Cult Today Z00.00 - Encounter for general adult medical examination without abnormal findings Complete Blood Count Auto Diff Today Z00.00 - Encounter for general adult medical examination without abnormal findings Microalbumin, Random (w Creat) Today I10 - Essential (primary) hypertension
--- OUTSIDE RECORDS SUMMARY | 2024-11-12 18:18 | XMS_ITS | Encounter Summary ---
Author Organization [facility] Address [address] [place] [phone] Phone Care Team Providers Care Shoe Lay Out Planner Name Role Phone Randall Rizvi MD Primary Care Provider [phone] Encounter Details Date Type Department Care Team (Late st Contact Info) Description 12/09/2017 Conversion [facility]counter [facility] [id number] [place] [address] Airam Engel MD [address] [place] [address] Social History Tobacco Use Types Packs/Day Years [...] on filedocumented in this encounter Care Teams Shoe Lay Out Planner Relationship Specialty Start Date End Date Randall Rizvi MD [address] [place] [address] PCP - General Pediatrics 07/06/19 08/31/24 documented as of this encounter
--- OUTSIDE RECORDS SUMMARY | 2024-11-12 18:18 | XMS_ITS | Clinical Summary ---
Author Organization [facility] Address [address] [place] [address] Phone Care Team Providers Care Rail Car Loader Name Role Phone Unavailable Primary Care Provider Unavailabl e Allergies No known active allergies Medications guanFACINE [...] - intolerance of stimulants, MCPAP consult, Jessica Shanthi prescribes 01/01, back to [facility] for prescribing 02/01 Assessment & Plan (10/28/2020 [...] 5th percentile for age 0601/14/2016 07/08/2019 Immunizations Immunization Administration Dates Next Due COVID-19 Pfizer, monovalent, [...] patient's age to complete this topic Insurance [facility] NON PCC [facility] NON PCC
--- OUTSIDE RECORDS SUMMARY | 2024-11-12 18:18 | XMS_ITS | Encounter Summary ---
Author Organization [facility] Address [address] [place] [phone] Phone Care Team Providers Care Director Of Anesthesia Services Name Role Phone Randall Rizvi MD Primary Care Provider [phone] Reason for Visit * Reason Comments Med Refill Encounter Details Date Type Department Care Team (Late st Contact Info) Description 01/19/2018 [facility]ill [facility] [address] [address] Airam Engel MD [address] [place] [address] Social History Tobacco Use Types Packs/Day Years [...] on filedocumented in this encounter Care Teams Director Of Anesthesia Services Relationship Specialty Start Date End Date Randall Rizvi MD [address] [place] [address] PCP - General Pediatrics 07/06/19 08/31/24 documented as of this encounter
--- OUTSIDE RECORDS SUMMARY | 2024-11-12 18:18 | XMS_ITS | Encounter Summary ---
Author Organization [facility] Address [address] [place] [address] Phone Care Team Providers Care Heat Pump Installer Name Role Phone Randall Rizvi MD Primary Care Provider + [phone] Reason for Visit * Reason Comments Med Refill Encounter Details Date Type Department Care Team (Late st Contact Info) Description 06/08/2022 [facility]ill [facility] [address] [address] Greta Sanders MD [address] [place] [phone] Environmental allergies Social History Tobacco Use Types [...] agents documented in this encounter Care Teams Heat Pump Installer Relationship Specialty Start Date End Date Randall Rizvi MD 7 [facility] [place] [address] PCP - General Pediatrics 07/06/19 08/31/24 documented as of this encounter
--- OUTSIDE RECORDS SUMMARY | 2024-11-12 18:18 | XMS_ITS | Encounter Summary ---
Author Organization [facility] Address [address] [place] [address] Phone Care Team Providers Care Tripe Washer Name Role Phone Randall Rizvi MD Primary Care Provider + [phone] Reason for Visit * Reason Comments Med Refill Encounter Details Date Type Department Care Team (Late st Contact Info) Description 09/21/2022 [facility]ill [facility] [address] [address] Greta Sanders MD [address] [place] [phone] Environmental allergies Social History Tobacco Use Types [...] agents documented in this encounter Care Teams Tripe Washer Relationship Specialty Start Date End Date Randall Rizvi MD 7 [facility] [place] [address] PCP - General Pediatrics 07/06/19 08/31/24 documented as of this encounter
--- OUTSIDE RECORDS SUMMARY | 2024-11-12 18:18 | XMS_ITS | Encounter Summary ---
Author Organization [facility] Address [address] [place] [phone] Phone Care Team Providers Care Healthcare Economics Consultant Name Role Phone Randall Rizvi MD Primary Care Provider + [phone] Reason for Visit * Reason Comments Med Refill Encounter Details Date Type Department Care Team (Late st Contact Info) Description 11/16/2021 [facility]ill [facility] [address] [address] Randall Rizvi MD [address] [place] [phone] Environmental allergies Social History Tobacco Use Types [...] agents documented in this encounter Care Teams Healthcare Economics Consultant Relationship Specialty Start Date End Date Randall Rizvi MD 7 [facility] [place] [address] PCP - General Pediatrics 07/06/19 08/31/24 documented as of this encounter
== END 2024-11-12 17:05 | disposition home or self-care (01) ==
LOC: HO.HMCFM 15:42
PROVIDERS: PCP Family Medicine; Visit Provider Family Medicine
DX: R74.01 Elevation of levels of liver transaminase levels (principal)

== ENCOUNTER → 2024-11-12 15:42 | Outpatient (BNVA) | payer OTHER, SELFPAY | PROVIDERS: PCP Family Medicine; Visit Provider Family Medicine ==